=== PATIENT | female | born 1965 | race Caucasian/White ===

== ENCOUNTER 2016-11-25 16:34 | Inpatient (IN) | payer OTHER ==
[~2016-11-25] VITALS: Ht 182.9 cm; Wt 66.2 kg
[~2016-11-25 16:34] MED LIST: ASPIRIN EC81 MG PO
[2016-11-25 17:53] LABS: RED BLOOD COUNT 4.89 M/UL (4.00-5.10); WHITE BLOOD COUNT 13.5 K/UL (4.5-11.0)
[2016-11-25 18:15] LABS: BUN/CREATININE RATIO 17 (0-10)
[2016-11-25] MEDS ORDERED: CELEXA40 MG PO (21:57)
[2016-11-25] MEDS ORDERED: ALPRAZOLAM0.5 MG PO (21:58)
[2016-11-25] MEDS ORDERED: NEURONTIN 300300 MG PO (21:58)
[2016-11-25 22:45] LABS: HEMOGLOBIN 13.3 gm/dl (12.3-15.3); RED BLOOD COUNT 4.62 M/UL (4.00-5.10); WHITE BLOOD COUNT 12.5 K/UL (4.5-11.0)
[2016-11-26 04:09] LABS: RED BLOOD COUNT 4.84 M/UL (4.00-5.10); WHITE BLOOD COUNT 9.7 K/UL (4.5-11.0)
[2016-11-26 04:31] LABS: BUN/CREATININE RATIO 20 (0-10)
[2016-11-27 04:01] LABS: HEMOGLOBIN 13.7 gm/dl (12.3-15.3); RED BLOOD COUNT 4.71 M/UL (4.00-5.10)
[2016-11-27 04:22] LABS: BUN/CREATININE RATIO 23 (0-10)
[2016-11-28 03:54] LABS: HEMOGLOBIN 13.7 gm/dl (12.3-15.3); RED BLOOD COUNT 4.79 M/UL (4.00-5.10)
[2016-11-28 03:55] LABS: WHITE BLOOD COUNT 10.9 K/UL (4.5-11.0)
[2016-11-28 04:27] LABS: BUN/CREATININE RATIO 23 (0-10)
[2016-11-30 03:53] LABS: HEMOGLOBIN 14.2 gm/dl (12.3-15.3); RED BLOOD COUNT 4.98 M/UL (4.00-5.10); WHITE BLOOD COUNT 10.6 K/UL (4.5-11.0)
[2016-11-30 04:16] LABS: BUN/CREATININE RATIO 20 (0-10)
[2016-11-30] MEDS ORDERED: LEVAQUIN500 MG PO (15:07)
[2016-11-30] MEDS ORDERED: MEDROL DOSEPAK 24 MG PO (15:08)
[2016-11-30] MEDS ORDERED: DULERA 200 MCG8.8 GM INH (15:09)
[2016-11-30] MEDS ORDERED: IPRAT-ALBUT 0.5-3 ML INH (15:11)
[2016-11-30] MEDS ORDERED: INCRUSE ELLI62.5 MCG INH (15:12)
[2016-11-30] MEDS ORDERED: ROBITUSSIN100 MG/5 M PO (15:19)
[2016-11-30] MEDS ORDERED: TOPROL XL25 MG PO (15:21)
== END 2016-11-30 16:15 | disposition home or self-care (01) | DRG 189 ==
LOC: ER1 16:34 → PROG CARE 19:15 → ZEROF 19:15 → M/S 21:31 → CCU 11-26 11:02 → PROG CARE 11-26 15:02
PROVIDERS: Emergency Medicine; ADMIT Internal Medicine
DX: J96.21 Acute and chronic respiratory failure with hypoxia (principal); J44.1 Chronic obstructive pulmonary disease with (acute) exacerbation; F10.239 Alcohol dependence with withdrawal, unspecified; Z68.1 Body mass index [BMI] 19.9 or less, adult; F41.9 Anxiety disorder, unspecified; F32.9 Major depressive disorder, single episode, unspecified; J45.909 Unspecified asthma, uncomplicated; E03.9 Hypothyroidism, unspecified; M19.90 Unspecified osteoarthritis, unspecified site; F17.210 Nicotine dependence, cigarettes, uncomplicated; M54.5 Low back pain; R00.2 Palpitations; R63.4 Abnormal weight loss; I45.10 Unspecified right bundle-branch block; Y90.9 Presence of alcohol in blood, level not specified; Z91.14 Patient's other noncompliance with medication regimen; Z82.5 Family history of asthma and other chronic lower respiratory diseases; Z88.5 Allergy status to narcotic agent; Z79.899 Other long term (current) drug therapy; Z99.81 Dependence on supplemental oxygen; Z82.49 Family history of ischemic heart disease and other diseases of the circulatory system
CPT/HCPCS: 36415; 36600; 71010; 71020; 80048; 80053; 82550; 82553; 82803; 83605; 83735; 83880; 84100; 84439; 84443; 84484; 85025; 85027; 85379; 87040; 93005; 94640; 94664; 96374; 99285; J1956; J2060; J2405; J2550; J2920; J2930; J7050

== ENCOUNTER 2020-06-25 13:49 | Inpatient (IN) | payer OTHER ==
[~2020-06-25] VITALS: Ht 182.9 cm; Wt 58.5 kg
[~2020-06-25 13:49] MED LIST changes: +ACETAMINOPHEN325 MG PO; +ALBUTEROL0.63 MG/3 INH; +ALPRAZOLAM0.5 MG PO; +BROVANA15 MCG/2 M NEB; +BUDESONIDE0.25 MG/2 NEB; +CELEXA20 MG PO; +CELEXA40 MG PO; +DILTIAZEM 24HR300 M1 PO; +DULERA 200 MCG8.8 GM INH; +ELIQUIS 5 MG TAB5 MG PO; +FERROUS SULFAT325 M2 PO; +FLECAINIDE ACE100 MG PO; +FOLIC ACID 1 MG1 MG PO; +GABAPENTIN400 MG PO; +HUMIBID LA TAB600 MG PO; +INCRUSE ELLI62.5 MCG INH; +IPRAT-ALBUT 0.5-3 ML INH; +K-TAB ER20 MEQ PO; +LEVALBUTER1.25 MG/3 NEB; +LEVAQUIN500 MG PO; +LIBRIUM 5 MG CAP5 MG PO; +LOPRESSOR 25 MG25 MG PO; +MEDROL DOSEPAK 24 MG PO; +MEDROL4 MG PO; +NEURONTIN600 MG PO; +OMNICEF 300 MG300 MG PO; +ONDANSETRON ODT4 MG PO; +PERCOCET 5-3251 EACH PO; +PERCOCET 5/325 T1 EA PO; +PREDNISONE 10 M10 MG PO; +PREDNISONE20 MG PO; +PROTONIX40 MG PO; +PROVENTIL HFA6.7 GM INH; +ROBITUSSIN100 MG/5 M PO; +SEEBRI NEOHALER (WIT INH; +SPIRIVA HANDIH18 MCG INH; +SYMBICORT 16010.2 GM INH; +TAB-A-VITE1 EACH PO; +TESSALON PERLE100 MG PO; +TOPROL XL25 MG PO; +TRAMADOL HCL50 MG PO; +VENTOLIN HFA 66.7 GM INH; +VIBRAMYCIN100 MG PO; +VITAMIN B-1100 M1 PO; +VITAMIN B-1100 MG PO; +VITAMIN D325 MCG PO; +XANAX0.5 MG PO; +XARELTO 10 MG T10 MG PO; +XARELTO20 MG PO; +ZITHROMAX500 MG PO; +ZOFRAN4 MG PO
[2020-06-25 15:31] LABS: HEMOGLOBIN 13.9 gm/dl (12.3-15.3); RED BLOOD COUNT 4.64 M/UL (4.00-5.10); WHITE BLOOD COUNT 11.8 K/UL (4.5-11.0)
[2020-06-25 19:03] LABS: BUN/CREATININE RATIO 9 (0-10)
[2020-06-25] MEDS ORDERED: ALPRAZOLAM0.5 MG PO (20:20)
[2020-06-26 05:29] LABS: HEMOGLOBIN 10.9 gm/dl (12.3-15.3); RED BLOOD COUNT 3.72 M/UL (4.00-5.10)
[2020-06-26 05:51] LABS: BUN/CREATININE RATIO 12 (0-10)
[2020-06-26 14:04] LABS: HEMOGLOBIN 11.4 gm/dl (12.3-15.3); RED BLOOD COUNT 3.79 M/UL (4.00-5.10); WHITE BLOOD COUNT 7.1 K/UL (4.5-11.0)
[2020-06-26 14:32] LABS: BUN/CREATININE RATIO 13 (0-10)
[2020-06-27 14:51] LABS: RED BLOOD COUNT 4.02 M/UL (4.00-5.10)
[2020-06-27 15:18] LABS: BUN/CREATININE RATIO 14 (0-10)
[2020-06-28 14:12] LABS: HEMOGLOBIN 10.2 gm/dl (12.3-15.3)
[2020-06-28 14:17] LABS: RED BLOOD COUNT 3.42 M/UL (4.00-5.10); WHITE BLOOD COUNT 6.7 K/UL (4.5-11.0)
[2020-06-28 14:36] LABS: BUN/CREATININE RATIO 12 (0-10)
[2020-06-29 09:49] LABS: RED BLOOD COUNT 3.64 M/UL (4.00-5.10); WHITE BLOOD COUNT 7.9 K/UL (4.5-11.0)
[2020-06-29 10:09] LABS: BUN/CREATININE RATIO 9 (0-10)
[2020-06-29 22:27] LABS: ADENOVIRUS F 40/41 Not Detected (Negative); ASTROVIRUS Not Detected (Negative); CAMPYLOBACTER Not Detected (Negative); CRYPTOSPORIDIUM Not Detected (Negative); E.COLI 0157 Not Detected (Negative); ENTAMOEBA HISTOLYTICA Not Detected (Negative); ENTEROAGGREGATIVE E.COLI (EAEC Not Detected (Negative); ENTEROPATHOGENIC E.COLI (EPEC) Not Detected (Negative); ENTEROTOXIGENIC E.COLI (ETEC) Not Detected (Negative); GIARDIA LAMBLIA Not Detected (Negative); NOROVIRUS GI/GII Not Detected (Negative); PLESIOMONAS SHIGELLOIDES Not Detected (Negative); ROTOVIRUS A Not Detected (Negative); SALMONELLA Not Detected (Negative); SAPOVIRUS Not Detected (Negative); SHIG/ENTEROINVAS.ECOLI (EIEC) Not Detected (Negative); SHIGA-LIK TOX.PRO.E.COLI (STEC Not Detected (Negative); VIBRIO Not Detected (Negative); VIBRIO CHOLERAE Not Detected (Negative); YERSINIA ENTEROCOLITICA Not Detected (Negative)
[2020-06-30 05:17] LABS: HEMOGLOBIN 9.7 gm/dl (12.3-15.3); RED BLOOD COUNT 3.22 M/UL (4.00-5.10); WHITE BLOOD COUNT 6.4 K/UL (4.5-11.0)
[2020-06-30 05:35] LABS: BUN/CREATININE RATIO 12 (0-10)
[2020-06-30 11:59] LABS: CLOSTRIDIUM DIFFICILE TOX A/B DETECTED (Negative)
[2020-07-01 04:07] LABS: RED BLOOD COUNT 3.3 M/UL (4.00-5.10); WHITE BLOOD COUNT 6.9 K/UL (4.5-11.0)
[2020-07-01 04:32] LABS: BUN/CREATININE RATIO 13 (0-10)
[2020-07-02 03:01] LABS: HEMOGLOBIN 10.2 gm/dl (12.3-15.3); RED BLOOD COUNT 3.38 M/UL (4.00-5.10); WHITE BLOOD COUNT 7.5 K/UL (4.5-11.0)
[2020-07-02 03:33] LABS: BUN/CREATININE RATIO 15 (0-10)
[2020-07-03 02:33] LABS: HEMOGLOBIN 10.1 gm/dl (12.3-15.3); RED BLOOD COUNT 3.33 M/UL (4.00-5.10)
[2020-07-03 03:02] LABS: BUN/CREATININE RATIO 20 (0-10)
[2020-07-03] MEDS ORDERED: VITAMIN B-1100 M1 PO (11:55)
[2020-07-03] MEDS ORDERED: TAB-A-VITE TA400 MC1 PO (11:55)
[2020-07-03] MEDS ORDERED: NICOTINE PATCH1 EAC2 TOP (11:55)
[2020-07-03] MEDS ORDERED: AUGMENTIN 875-1 EACH PO (11:57)
[2020-07-03] MEDS ORDERED: VANCOCIN HCL125 MG PO (12:03)
== END 2020-07-03 13:53 | disposition home health service (06) | DRG 896 ==
LOC: ER1 13:49 → PROG CARE 19:27 → CDU 19:27 → PROG CARE 06-26 11:00
PROVIDERS: Emergency Medicine; Internal Medicine; ADMIT Internal Medicine
DX: F10.229 Alcohol dependence with intoxication, unspecified (principal); J18.9 Pneumonia, unspecified organism; A04.72 Enterocolitis due to Clostridium difficile, not specified as recurrent; J44.1 Chronic obstructive pulmonary disease with (acute) exacerbation; I48.20 Chronic atrial fibrillation, unspecified; E87.0 Hyperosmolality and hypernatremia; J44.0 Chronic obstructive pulmonary disease with (acute) lower respiratory infection; Z20.822 Contact with and (suspected) exposure to COVID-19; E87.6 Hypokalemia; E83.39 Other disorders of phosphorus metabolism; I10 Essential (primary) hypertension; D69.59 Other secondary thrombocytopenia; E80.6 Other disorders of bilirubin metabolism; D64.9 Anemia, unspecified; R79.89 Other specified abnormal findings of blood chemistry; D72.829 Elevated white blood cell count, unspecified; M25.512 Pain in left shoulder; F17.210 Nicotine dependence, cigarettes, uncomplicated; G62.9 Polyneuropathy, unspecified; Z98.51 Tubal ligation status; Z82.3 Family history of stroke; Z99.81 Dependence on supplemental oxygen; Z80.3 Family history of malignant neoplasm of breast; Z91.81 History of falling; Z23 Encounter for immunization
CPT/HCPCS: 36415; 36600; 70450; 71045; 73030; 76705; 80053; 80202; 82550; 82553; 82607; 82803; 83735; 83874; 83880; 84100; 84132; 84439; 84443; 84484; 85025; 85027; 87324; 87449; 87507; 90471; 90686; 93005; 94640; 94760; 96365; 96366; 96372; 96375; 96376; 97161; 99285; G0008; G0480; J1335; J1650; J1885; J2060; J2185; J2405; J3370; J3411; J3475; J3480; J7030; J7070; U0002

== ENCOUNTER 2020-08-28 21:37 | Inpatient (IN) | payer OTHER ==
[~2020-08-28] VITALS: Ht 182.9 cm; Wt 50.8 kg
[~2020-08-28 21:37] MED LIST changes: +AUGMENTIN 875-1 EACH PO; +NICOTINE PATCH1 EAC2 TOP; +TAB-A-VITE TA400 MC1 PO; +VANCOCIN HCL125 MG PO
[2020-08-28 22:07] LABS: HEMOGLOBIN 10.7 gm/dl (12.3-15.3); RED BLOOD COUNT 3.52 M/UL (4.00-5.10); WHITE BLOOD COUNT 12.9 K/UL (4.5-11.0)
[2020-08-28 22:25] LABS: BUN/CREATININE RATIO 31 (0-10)
[2020-08-29] MEDS ORDERED: DILTIAZEM 24HR240 M1 PO (00:12)
[2020-08-29] MEDS ORDERED: ASPIRIN EC81 MG PO (00:16)
[2020-08-29 03:53] LABS: HEMOGLOBIN 10.6 gm/dl (12.3-15.3); RED BLOOD COUNT 3.46 M/UL (4.00-5.10); WHITE BLOOD COUNT 10.8 K/UL (4.5-11.0)
[2020-08-29 04:18] LABS: BUN/CREATININE RATIO 19 (0-10)
[2020-08-30 06:29] LABS: HEMOGLOBIN 10.9 gm/dl (12.3-15.3); RED BLOOD COUNT 3.64 M/UL (4.00-5.10)
[2020-08-30 06:35] LABS: WHITE BLOOD COUNT 7.5 K/UL (4.5-11.0)
[2020-08-30 06:52] LABS: BUN/CREATININE RATIO 18 (0-10)
[2020-08-30] MEDS ORDERED: FERROUS SULFAT325 M2 PO (13:44)
[2020-08-30] MEDS ORDERED: VITAMIN B-1100 M1 PO (13:44)
[2020-08-30] MEDS ORDERED: FOLIC ACID 1 MG1 MG PO (13:44)
[2020-08-30] MEDS ORDERED: KEPPRA500 MG PO (13:44)
[2020-08-30] MEDS ORDERED: OXYCODONE HCL5 MG PO (13:44)
== END 2020-08-30 15:03 | disposition home or self-care (01) | DRG 897 ==
LOC: ER1 21:37 → CDU 23:00 → MED SURG 4 23:00
PROVIDERS: Internal Medicine; ADMIT Internal Medicine
DX: F10.139 Alcohol abuse with withdrawal, unspecified (principal); R64 Cachexia; Z68.1 Body mass index [BMI] 19.9 or less, adult; G40.909 Epilepsy, unspecified, not intractable, without status epilepticus; J44.9 Chronic obstructive pulmonary disease, unspecified; M19.90 Unspecified osteoarthritis, unspecified site; D64.9 Anemia, unspecified; E88.09 Other disorders of plasma-protein metabolism, not elsewhere classified; I48.0 Paroxysmal atrial fibrillation; F17.200 Nicotine dependence, unspecified, uncomplicated; F41.9 Anxiety disorder, unspecified; Z98.51 Tubal ligation status
CPT/HCPCS: 36415; 70450; 70551; 71045; 72131; 80048; 80053; 80307; 81001; 83735; 85025; 85610; 85730; 93005; 94640; 94664; 94760; 96365; 96366; 96375; 99285; G0378; G0480; J1170; J1953; J2060; J2405; J7030

== ENCOUNTER 2020-09-07 23:43 | Emergency (ER) | payer OTHER ==
[~2020-09-07 23:43] MED LIST changes: +DILTIAZEM 24HR240 M1 PO; +KEPPRA500 MG PO; +OXYCODONE HCL5 MG PO
[2020-09-08] MEDS ORDERED: PERCOCET 5-3251 EACH PO (03:13)
[2020-09-08] MEDS ORDERED: IBUPROFEN600 MG PO (03:13)
[2020-09-08] MEDS ORDERED: COLACE100 MG PO (03:13)
== END 2020-09-08 04:00 | disposition home or self-care (01) ==
LOC: ER1 23:43
DX: S32.10XA Unspecified fracture of sacrum, initial encounter for closed fracture (principal); J44.9 Chronic obstructive pulmonary disease, unspecified; F17.210 Nicotine dependence, cigarettes, uncomplicated; W19.XXXA Unspecified fall, initial encounter
CPT/HCPCS: 72131; 96372; 99284; J1100; J1885

== ENCOUNTER 2020-10-14 20:47 | Inpatient (IN) | payer OTHER ==
[~2020-10-14] VITALS: Ht 183 cm; Wt 56.7 kg
[~2020-10-14 20:47] MED LIST changes: +COLACE100 MG PO; +IBUPROFEN600 MG PO
[2020-10-14 21:59] LABS: HEMOGLOBIN 12.4 gm/dl (12.3-15.3); RED BLOOD COUNT 4.22 M/UL (4.00-5.10); WHITE BLOOD COUNT 15.5 K/UL (4.5-11.0)
[2020-10-14 22:16] LABS: BUN/CREATININE RATIO 12 (0-10)
[2020-10-14 23:55] LABS: BORDETELLA PARAPERTUSSIS Not Detected (Not Detectd); BORDETELLA PERTUSSIS Not Detected (Not Detectd); CHLAMYDIA PNEUMONIAE Not Detected (Not Detectd); CORONAVIRUS HKU1 Not Detected (Not Detectd); CORONAVIRUS NL63 Not Detected (Not Detectd); CORONAVIRUS OC43 Not Detected (Not Detectd); CORONOAVIRUS 229E Not Detected (Not Detectd); HUMAN METAPNEUMOVIRUS Not Detected (Not Detectd); HUMAN RHINOVIRUS/ENTEROVIRUS Not Detected (Not Detectd); INFLUENZA A Not Detected (Not Detectd); INFLUENZA B Not Detected (Not Detectd); MYCOPLASMA PNEUMONIAE Not Detected (Not Detectd); PARAINFLUENZA VIRUS 1 Not Detected (Not Detectd); PARAINFLUENZA VIRUS 2 Not Detected (Not Detectd); PARAINFLUENZA VIRUS 3 Not Detected (Not Detectd); PARAINFLUENZA VIRUS 4 Not Detected (Not Detectd); RESPIRATORY SYNCYTIAL VIRUS Not Detected (Not Detectd)
[2020-10-15 01:58] LABS: HEMOGLOBIN 12.2 gm/dl (12.3-15.3); RED BLOOD COUNT 4.22 M/UL (4.00-5.10); WHITE BLOOD COUNT 15.6 K/UL (4.5-11.0)
[2020-10-15 02:05] LABS: SARS-CoV-2 NOT DETECTED (Not Detectd)
[2020-10-15 02:21] LABS: BUN/CREATININE RATIO 9 (0-10)
[2020-10-15] MEDS ORDERED: CELEXA 20MG TAB20 MG PO (09:13)
[2020-10-15] MEDS ORDERED: ALPRAZOLAM0.5 MG PO (09:13)
[2020-10-15] MEDS ORDERED: GABAPENTIN800 MG PO (09:14)
[2020-10-15] MEDS ORDERED: PHENERGAN 25 MG25 M1 PO (09:15)
[2020-10-15] MEDS ORDERED: KEPPRA 500 MG500 MG PO (09:16)
[2020-10-15] MEDS ORDERED: DILTIAZEM 24HR240 M1 PO (09:21)
[2020-10-16 02:31] LABS: HEMOGLOBIN 10.5 gm/dl (12.3-15.3); RED BLOOD COUNT 3.69 M/UL (4.00-5.10); WHITE BLOOD COUNT 9.6 K/UL (4.5-11.0)
[2020-10-16 03:02] LABS: BUN/CREATININE RATIO 24 (0-10)
[2020-10-17 03:08] LABS: BUN/CREATININE RATIO 24 (0-10)
[2020-10-18 03:15] LABS: BUN/CREATININE RATIO 37 (0-10)
[2020-10-21 04:30] LABS: HEMOGLOBIN 10.6 gm/dl (12.3-15.3); RED BLOOD COUNT 3.75 M/UL (4.00-5.10); WHITE BLOOD COUNT 11.1 K/UL (4.5-11.0)
[2020-10-21 04:52] LABS: BUN/CREATININE RATIO 37 (0-10)
[2020-10-23 03:16] LABS: HEMOGLOBIN 11.3 gm/dl (12.3-15.3); WHITE BLOOD COUNT 8.9 K/UL (4.5-11.0)
[2020-10-23 03:32] LABS: BUN/CREATININE RATIO 34 (0-10)
[2020-10-23] MEDS ORDERED: DIGOXIN250 MCG PO (08:59)
[2020-10-23] MEDS ORDERED: LOPRESSOR 25 MG25 MG PO (08:59)
[2020-10-23] MEDS ORDERED: DILTIAZEM 24HR180 M1 PO (08:59)
[2020-10-23] MEDS ORDERED: ASPIRIN81 MG PO (08:59)
--- NOTE | 2020-10-23 17:32 | NUR ---
REPORT CALLED TO [facility]. [phone]
--- NOTE | 2020-10-23 17:36 | NUR ---
REPORT TO FE
== END 2020-10-23 17:07 | disposition home or self-care (01) | DRG 308 ==
LOC: ER1 20:47 → CDU 22:54 → PROG CARE 22:54
PROVIDERS: Emergency Medicine; Internal Medicine; ADMIT Internal Medicine Infectious Disease
DX: I48.0 Paroxysmal atrial fibrillation (principal); J96.21 Acute and chronic respiratory failure with hypoxia; R57.0 Cardiogenic shock; J44.1 Chronic obstructive pulmonary disease with (acute) exacerbation; F10.239 Alcohol dependence with withdrawal, unspecified; E44.0 Moderate protein-calorie malnutrition; Z68.1 Body mass index [BMI] 19.9 or less, adult; F10.229 Alcohol dependence with intoxication, unspecified; M19.90 Unspecified osteoarthritis, unspecified site; K57.90 Diverticulosis of intestine, part unspecified, without perforation or abscess without bleeding; R07.9 Chest pain, unspecified; G62.9 Polyneuropathy, unspecified; Z20.822 Contact with and (suspected) exposure to COVID-19; Y90.8 Blood alcohol level of 240 mg/100 ml or more; Z79.01 Long term (current) use of anticoagulants; Z72.0 Tobacco use; Z98.51 Tubal ligation status; Z80.3 Family history of malignant neoplasm of breast; Z82.3 Family history of stroke; Z91.81 History of falling; G40.909 Epilepsy, unspecified, not intractable, without status epilepticus; I48.19 Other persistent atrial fibrillation
CPT/HCPCS: 0240U; 36415; 71045; 71275; 80048; 80053; 82550; 82553; 82607; 83605; 83735; 83874; 84100; 84439; 84443; 84484; 85025; 85610; 85730; 87040; 87633; 93005; 94640; 94664; 94760; 96374; 96375; 96376; 97110; 97116-GP-CQ; 97161; 97166; 97530-GP-CQ; 99285; G0480; J1160; J1650; J2060; J2270; J2920; J2930; J3411; J3475; J7030; Q9967

== ENCOUNTER 2020-11-10 20:20 | Inpatient (IN) | payer OTHER ==
[~2020-11-10] VITALS: Ht 167.6 cm; Wt 53.1 kg
[~2020-11-10 20:20] MED LIST changes: +ASPIRIN81 MG PO; +CELEXA 20MG TAB20 MG PO; +DIGOXIN250 MCG PO; +DILTIAZEM 24HR180 M1 PO; +GABAPENTIN800 MG PO; +KEPPRA 500 MG500 MG PO; +PHENERGAN 25 MG25 M1 PO
[2020-11-10 20:48] LABS: HEMOGLOBIN 12.8 gm/dl (12.3-15.3); RED BLOOD COUNT 4.66 M/UL (4.00-5.10); WHITE BLOOD COUNT 10.3 K/UL (4.5-11.0)
[2020-11-10 21:18] LABS: BUN/CREATININE RATIO 6 (0-10)
[2020-11-11 06:05] LABS: HEMOGLOBIN 11.9 gm/dl (12.3-15.3); WHITE BLOOD COUNT 9.2 K/UL (4.5-11.0)
[2020-11-11 06:06] LABS: RED BLOOD COUNT 4.19 M/UL (4.00-5.10)
[2020-11-11 06:34] LABS: BUN/CREATININE RATIO 8 (0-10)
[2020-11-11] MEDS ORDERED: DIGOXIN125 MCG PO (11:18)
[2020-11-11] MEDS ORDERED: KEPPRA500 MG PO (11:48)
[2020-11-11] MEDS ORDERED: DOCUSATE SODIU100 MG PO (11:49)
[2020-11-11] MEDS ORDERED: PHENERGAN 25 MG25 M1 PO (11:49)
[2020-11-11] MEDS ORDERED: FERROUS SULFAT325 MG PO (11:50)
[2020-11-11] MEDS ORDERED: DAILY-VITE1 EACH PO (11:50)
[2020-11-11] MEDS ORDERED: PROAIR HFA8.5 GM INH (11:51)
[2020-11-12 04:32] LABS: HEMOGLOBIN 11.1 gm/dl (12.3-15.3); RED BLOOD COUNT 3.89 M/UL (4.00-5.10); WHITE BLOOD COUNT 8.8 K/UL (4.5-11.0)
[2020-11-12 05:00] LABS: BUN/CREATININE RATIO 10 (0-10)
[2020-11-13 03:11] LABS: HEMOGLOBIN 10.3 gm/dl (12.3-15.3); RED BLOOD COUNT 3.68 M/UL (4.00-5.10); WHITE BLOOD COUNT 7.9 K/UL (4.5-11.0)
[2020-11-13 03:42] LABS: BUN/CREATININE RATIO 21 (0-10)
[2020-11-14 02:45] LABS: HEMOGLOBIN 10.6 gm/dl (12.3-15.3); RED BLOOD COUNT 3.71 M/UL (4.00-5.10)
[2020-11-14 02:48] LABS: WHITE BLOOD COUNT 11.2 K/UL (4.5-11.0)
[2020-11-14 03:05] LABS: BUN/CREATININE RATIO 20 (0-10)
[2020-11-15 03:03] LABS: HEMOGLOBIN 10.7 gm/dl (12.3-15.3); RED BLOOD COUNT 3.74 M/UL (4.00-5.10)
[2020-11-15 03:23] LABS: BUN/CREATININE RATIO 31 (0-10)
[2020-11-16 02:42] LABS: HEMOGLOBIN 10.8 gm/dl (12.3-15.3); RED BLOOD COUNT 3.76 M/UL (4.00-5.10); WHITE BLOOD COUNT 12.2 K/UL (4.5-11.0)
[2020-11-16 03:06] LABS: BUN/CREATININE RATIO 31 (0-10)
[2020-11-17 04:49] LABS: HEMOGLOBIN 11.6 gm/dl (12.3-15.3); RED BLOOD COUNT 4.04 M/UL (4.00-5.10); WHITE BLOOD COUNT 12.5 K/UL (4.5-11.0)
[2020-11-17 05:19] LABS: BUN/CREATININE RATIO 40 (0-10)
[2020-11-18 03:37] LABS: HEMOGLOBIN 10.7 gm/dl (12.3-15.3); RED BLOOD COUNT 3.8 M/UL (4.00-5.10); WHITE BLOOD COUNT 11.3 K/UL (4.5-11.0)
[2020-11-18 03:58] LABS: BUN/CREATININE RATIO 40 (0-10)
[2020-11-18] MEDS ORDERED: DILTIAZEM 24HR240 M1 PO (14:27)
[2020-11-18] MEDS ORDERED: PROAIR HFA8.5 GM INH (14:27)
[2020-11-18] MEDS ORDERED: LOPRESSOR 25 MG25 MG PO (14:27)
[2020-11-18] MEDS ORDERED: PREDNISONE 20 M20 MG PO (14:27)
[2020-11-18] MEDS ORDERED: DIGOXIN250 MCG PO (14:27)
[2020-11-18] MEDS ORDERED: SYMBICORT 80-41 INHA INH (14:27)
[2020-12-17] MEDS ORDERED: DOXYCYCLINE HY100 MG PO (09:01)
[2020-12-17] MEDS ORDERED: FOLIC ACID1 MG PO (09:01)
[2020-12-17] MEDS ORDERED: THIAMINE HCL100 MG PO (09:01)
[2020-12-17] MEDS ORDERED: IPRATROPIU0.2 MG/1 M INH (09:01)
[2020-12-17] MEDS ORDERED: LEVALBUTER1.25 MG/3 NEB (09:01)
[2020-12-17] MEDS ORDERED: MUPIROCIN22 GM TOP (09:01)
[2020-12-17] MEDS ORDERED: METOPROLOL SUC200 MG PO (09:01)
== END 2020-11-18 16:35 | disposition home or self-care (01) | DRG 308 ==
LOC: ER1 20:20 → CDU 23:32 → PROG CARE 23:32
PROVIDERS: Emergency Medicine; Internal Medicine; ADMIT Internal Medicine
DX: I48.11 Longstanding persistent atrial fibrillation (principal); J69.0 Pneumonitis due to inhalation of food and vomit; J44.1 Chronic obstructive pulmonary disease with (acute) exacerbation; J44.0 Chronic obstructive pulmonary disease with (acute) lower respiratory infection; F10.139 Alcohol abuse with withdrawal, unspecified; F10.129 Alcohol abuse with intoxication, unspecified; Z20.822 Contact with and (suspected) exposure to COVID-19; G62.9 Polyneuropathy, unspecified; R53.81 Other malaise; F17.210 Nicotine dependence, cigarettes, uncomplicated; M19.90 Unspecified osteoarthritis, unspecified site; I08.1 Rheumatic disorders of both mitral and tricuspid valves; F32.9 Major depressive disorder, single episode, unspecified; E83.39 Other disorders of phosphorus metabolism; F41.9 Anxiety disorder, unspecified; Z79.01 Long term (current) use of anticoagulants; Z99.81 Dependence on supplemental oxygen; Z98.51 Tubal ligation status; Z87.19 Personal history of other diseases of the digestive system; Z80.3 Family history of malignant neoplasm of breast; Z82.3 Family history of stroke; Z79.82 Long term (current) use of aspirin; Z65.8 Other specified problems related to psychosocial circumstances; Y90.8 Blood alcohol level of 240 mg/100 ml or more
CPT/HCPCS: 36415; 71045; 71046; 80048; 80053; 80162; 82550; 82553; 83735; 83874; 83880; 84100; 84439; 84443; 84484; 85025; 85027; 86140; 93005; 94640; 94664; 94760; 96365; 96366; 96368; 96375; 97116-GP-CQ; 97161; 97166; 99285; C1751; G0480; J1120; J1160; J1650; J2060; J2405; J2920; J3411; J3475; J3480; J7030; U0002

== ENCOUNTER 2020-12-11 22:24 | Inpatient (IN) | payer OTHER ==
[~2020-12-11] VITALS: Ht 175.3 cm; Wt 56.2 kg
[~2020-12-11 22:24] MED LIST changes: +DAILY-VITE1 EACH PO; +DIGOXIN125 MCG PO; +DOCUSATE SODIU100 MG PO; +FERROUS SULFAT325 MG PO; +PREDNISONE 20 M20 MG PO; +PROAIR HFA8.5 GM INH; +SYMBICORT 80-41 INHA INH
[2020-12-11 22:59] LABS: HEMOGLOBIN 12.5 gm/dl (12.3-15.3); RED BLOOD COUNT 4.29 M/UL (4.00-5.10); WHITE BLOOD COUNT 10.3 K/UL (4.5-11.0)
[2020-12-11 23:33] LABS: BUN/CREATININE RATIO 7 (0-10)
[2020-12-12] MEDS ORDERED: SYMBICORT 80-10.2 GM INH (02:35)
[2020-12-12] MEDS ORDERED: ALPRAZOLAM0.5 MG PO (02:35)
[2020-12-12 08:26] LABS: BUN/CREATININE RATIO 9 (0-10)
[2020-12-13 04:44] LABS: BUN/CREATININE RATIO 10 (0-10)
[2020-12-14 04:15] LABS: BUN/CREATININE RATIO 15 (0-10)
[2020-12-15 03:56] LABS: HEMOGLOBIN 10.9 gm/dl (12.3-15.3); RED BLOOD COUNT 3.75 M/UL (4.00-5.10); WHITE BLOOD COUNT 10.3 K/UL (4.5-11.0)
[2020-12-15 04:24] LABS: BUN/CREATININE RATIO 19 (0-10)
[2020-12-16 04:58] LABS: HEMOGLOBIN 10.1 gm/dl (12.3-15.3); RED BLOOD COUNT 3.51 M/UL (4.00-5.10); WHITE BLOOD COUNT 8.4 K/UL (4.5-11.0)
[2020-12-16 05:17] LABS: BUN/CREATININE RATIO 25 (0-10)
[2020-12-17 04:22] LABS: RED BLOOD COUNT 3.82 M/UL (4.00-5.10); WHITE BLOOD COUNT 8.7 K/UL (4.5-11.0)
[2020-12-17 04:41] LABS: BUN/CREATININE RATIO 27 (0-10)
[2020-12-17] MEDS ORDERED: FOLIC ACID1 MG PO (09:01)
[2020-12-17] MEDS ORDERED: IPRATROPIU0.2 MG/1 M INH (09:01)
[2020-12-17] MEDS ORDERED: DOXYCYCLINE HY100 MG PO (09:01)
[2020-12-17] MEDS ORDERED: LEVALBUTER1.25 MG/3 NEB (09:01)
[2020-12-17] MEDS ORDERED: MUPIROCIN22 GM TOP (09:01)
[2020-12-17] MEDS ORDERED: METOPROLOL SUC200 MG PO (09:01)
[2020-12-17] MEDS ORDERED: THIAMINE HCL100 MG PO (09:01)
== END 2020-12-17 17:00 | disposition home health service (06) | DRG 308 ==
LOC: ER1 22:24 → CCU 12-12 00:17 → CDU 12-12 00:17 → PROG CARE 12-12 00:17 → CCU 12-12 02:42 → PROG CARE 12-14 18:55 → CCU 12-14 20:11 → PROG CARE 12-14 23:25
PROVIDERS: Internal Medicine; Physician Assistant; ADMIT Internal Medicine
DX: I48.19 Other persistent atrial fibrillation (principal); E43 Unspecified severe protein-calorie malnutrition; J44.1 Chronic obstructive pulmonary disease with (acute) exacerbation; J96.11 Chronic respiratory failure with hypoxia; F10.131 Alcohol abuse with withdrawal delirium; Z68.1 Body mass index [BMI] 19.9 or less, adult; F32.9 Major depressive disorder, single episode, unspecified; F10.10 Alcohol abuse, uncomplicated; F41.9 Anxiety disorder, unspecified; Z20.822 Contact with and (suspected) exposure to COVID-19; F10.129 Alcohol abuse with intoxication, unspecified; M19.90 Unspecified osteoarthritis, unspecified site; E87.6 Hypokalemia; R74.01 Elevation of levels of liver transaminase levels; G89.29 Other chronic pain; M54.9 Dorsalgia, unspecified; E83.39 Other disorders of phosphorus metabolism; E83.51 Hypocalcemia; Z91.14 Patient's other noncompliance with medication regimen; Z79.01 Long term (current) use of anticoagulants; Z98.51 Tubal ligation status; Z82.3 Family history of stroke; Z80.3 Family history of malignant neoplasm of breast
CPT/HCPCS: ECHO; 36415; 71045; 71046; 80053; 80162; 80202; 80307; 81001; 82550; 82553; 82607; 82746; 83036; 83735; 83874; 83880; 84100; 84132; 84484; 85025; 85027; 86140; 87040; 87070; 87086; 87205; 93005; 93306; 94640; 94664; 94760; 96374; 96375; 99285; A6212; G0480; J1160; J1650; J1940; J2060; J2405; J2920; J2930; J3370; J3411; J3475; J3480; J7030; J7070; U0002

== ENCOUNTER 2021-03-01 19:59 | Inpatient (IN) | payer OTHER ==
[~2021-03-01] VITALS: Ht 172.7 cm; Wt 57.2 kg
[~2021-03-01 19:59] MED LIST changes: +DOXYCYCLINE HY100 MG PO; +FOLIC ACID1 MG PO; +IPRATROPIU0.2 MG/1 M INH; +METOPROLOL SUC200 MG PO; +MUPIROCIN22 GM TOP; +SYMBICORT 80-10.2 GM INH; +THIAMINE HCL100 MG PO
[2021-03-01 20:40] LABS: HEMOGLOBIN 13.7 gm/dl (12.3-15.3); RED BLOOD COUNT 4.49 M/UL (4.00-5.10); WHITE BLOOD COUNT 10.6 K/UL (4.5-11.0)
[2021-03-01 21:05] LABS: BUN/CREATININE RATIO 6 (0-10)
[2021-03-02 07:48] LABS: HEMOGLOBIN 11.1 gm/dl (12.3-15.3); RED BLOOD COUNT 3.78 M/UL (4.00-5.10); WHITE BLOOD COUNT 2.4 K/UL (4.5-11.0)
[2021-03-02 09:24] LABS: BUN/CREATININE RATIO 10 (0-10)
[2021-03-03 07:31] LABS: BUN/CREATININE RATIO 23 (0-10)
[2021-03-03 11:07] LABS: BUN/CREATININE RATIO 21 (0-10)
[2021-03-03] MEDS ORDERED: PROAIR HFA8.5 GM INH (11:43)
[2021-03-03] MEDS ORDERED: AMOX TR-K CLV1 EAC4 PO (11:53)
[2021-03-03] MEDS ORDERED: TAB-A-VITE TA400 MC1 PO (11:53)
[2021-03-03] MEDS ORDERED: TOPROL XL200 MG PO (11:55)
[2021-03-03] MEDS ORDERED: KEPPRA500 MG PO (12:12)
== END 2021-03-03 14:17 | disposition home health service (06) | DRG 896 ==
LOC: ER1 19:59 → CDU 23:13 → MED SURG 4 23:13
PROVIDERS: Family Medicine; Internal Medicine; ADMIT Internal Medicine
DX: F10.129 Alcohol abuse with intoxication, unspecified (principal); J96.01 Acute respiratory failure with hypoxia; Z20.822 Contact with and (suspected) exposure to COVID-19; J44.1 Chronic obstructive pulmonary disease with (acute) exacerbation; E87.2 Acidosis; I48.0 Paroxysmal atrial fibrillation; F41.9 Anxiety disorder, unspecified; G62.9 Polyneuropathy, unspecified; F17.210 Nicotine dependence, cigarettes, uncomplicated; M19.90 Unspecified osteoarthritis, unspecified site; R53.81 Other malaise; G89.29 Other chronic pain; E87.6 Hypokalemia; E86.0 Dehydration; Z79.01 Long term (current) use of anticoagulants; Z99.81 Dependence on supplemental oxygen; Z98.51 Tubal ligation status; Z82.3 Family history of stroke; Z80.3 Family history of malignant neoplasm of breast; Z91.14 Patient's other noncompliance with medication regimen
CPT/HCPCS: 36415; 71045; 80053; 82550; 82553; 83605; 83735; 84100; 84484; 85025; 87040; 93005; 94640; 94664; 94760; 96374; 96375; 96376; 99285; G0378; G0480; J0456; J0696; J1160; J2920; J2930; J3411; J3480; J7030; U0002

== ENCOUNTER 2021-03-12 19:23 | Inpatient (IN) | payer OTHER ==
[~2021-03-12] VITALS: Ht 182.9 cm; Wt 58.2 kg
[~2021-03-12 19:23] MED LIST changes: +AMOX TR-K CLV1 EAC4 PO; +TOPROL XL200 MG PO
[2021-03-12 20:01] LABS: HEMOGLOBIN 12.9 gm/dl (12.3-15.3); RED BLOOD COUNT 4.31 M/UL (4.00-5.10); WHITE BLOOD COUNT 11.5 K/UL (4.5-11.0)
[2021-03-12 20:43] LABS: BUN/CREATININE RATIO 6 (0-10)
[2021-03-14 02:52] LABS: WHITE BLOOD COUNT 9.1 K/UL (4.5-11.0)
[2021-03-14 03:26] LABS: BUN/CREATININE RATIO 7 (0-10)
[2021-03-14 03:28] LABS: RED BLOOD COUNT 3.73 M/UL (4.00-5.10)
[2021-03-15 04:15] LABS: HEMOGLOBIN 11.1 gm/dl (12.3-15.3); RED BLOOD COUNT 3.77 M/UL (4.00-5.10); WHITE BLOOD COUNT 9.3 K/UL (4.5-11.0)
[2021-03-15 04:50] LABS: BUN/CREATININE RATIO 9 (0-10)
[2021-03-16 03:23] LABS: HEMOGLOBIN 11.6 gm/dl (12.3-15.3); RED BLOOD COUNT 3.88 M/UL (4.00-5.10); WHITE BLOOD COUNT 11.1 K/UL (4.5-11.0)
[2021-03-16 03:56] LABS: BUN/CREATININE RATIO 13 (0-10)
[2021-03-16] MEDS ORDERED: IPRATROPIU0.2 MG/1 M NEB (18:18)
[2021-03-16] MEDS ORDERED: GABAPENTIN300 MG PO (18:18)
[2021-03-16] MEDS ORDERED: XOPENEX HFA15 GM INH (18:18)
[2021-03-16] MEDS ORDERED: ASPIRIN EC81 MG PO (18:18)
[2021-03-16] MEDS ORDERED: CARVEDILOL3.125 MG PO (18:18)
[2021-03-16] MEDS ORDERED: NICOTINE PATCH1 EAC2 TD (18:18)
[2021-03-16] MEDS ORDERED: LEVALBUTER1.25 MG/3 NEB (18:18)
[2021-03-16] MEDS ORDERED: VITAMIN B-1100 M1 PO (18:18)
[2021-03-16] MEDS ORDERED: PROTONIX 40 MG40 M1 PO (18:18)
[2021-03-16] MEDS ORDERED: DILTIAZEM 24HR300 M1 PO (18:18)
[2021-03-16] MEDS ORDERED: OMNICEF 300 MG300 MG PO (18:18)
== END 2021-03-16 19:10 | disposition home or self-care (01) | DRG 308 ==
LOC: ER1 19:23 → CDU 03-13 09:05 → PROG CARE 03-13 09:35
PROVIDERS: Nurse Practitioner; Physician Assistant; ADMIT Internal Medicine
DX: I48.21 Permanent atrial fibrillation (principal); J18.9 Pneumonia, unspecified organism; Z20.822 Contact with and (suspected) exposure to COVID-19; J96.11 Chronic respiratory failure with hypoxia; J44.0 Chronic obstructive pulmonary disease with (acute) lower respiratory infection; J44.1 Chronic obstructive pulmonary disease with (acute) exacerbation; E87.6 Hypokalemia; F41.9 Anxiety disorder, unspecified; M19.90 Unspecified osteoarthritis, unspecified site; F10.129 Alcohol abuse with intoxication, unspecified; G40.909 Epilepsy, unspecified, not intractable, without status epilepticus; G62.9 Polyneuropathy, unspecified; F17.210 Nicotine dependence, cigarettes, uncomplicated; Z79.01 Long term (current) use of anticoagulants; Z91.81 History of falling; Z98.51 Tubal ligation status; Z76.5 Malingerer [conscious simulation]; Z91.14 Patient's other noncompliance with medication regimen
CPT/HCPCS: 36415; 71045; 71275; 80053; 80162; 80202; 80307; 81001; 82550; 82553; 83605; 83735; 83874; 83880; 84439; 84443; 84484; 85025; 87040; 93005; 94640; 94664; 94760; 96374; 96375; 96376; 99285; G0480; J0696; J1940; J2060; J2405; J2543; J3370; J3411; J3475; J7030; J7070; Q9967; U0002

== ENCOUNTER 2021-05-22 11:52 | Inpatient (IN) | payer OTHER ==
[~2021-05-22] VITALS: Ht 182.9 cm; Wt 57.6 kg
[~2021-05-22 11:52] MED LIST changes: +CARVEDILOL3.125 MG PO; +GABAPENTIN300 MG PO; +IPRATROPIU0.2 MG/1 M NEB; +NICOTINE PATCH1 EAC2 TD; +PROTONIX 40 MG40 M1 PO; +XOPENEX HFA15 GM INH
[2021-05-22 12:48] LABS: HEMOGLOBIN 12.3 gm/dl (12.3-15.3); RED BLOOD COUNT 4.64 M/UL (4.00-5.10); WHITE BLOOD COUNT 9.7 K/UL (4.5-11.0)
[2021-05-22 13:12] LABS: BUN/CREATININE RATIO 18 (0-10)
[2021-05-22] MEDS ORDERED: PREDNISONE 20 M20 MG PO (18:30)
[2021-05-22] MEDS ORDERED: DOXYCYCLINE HY100 M2 PO (18:30)
[2021-05-23 05:58] LABS: HEMOGLOBIN 10.9 gm/dl (12.3-15.3); RED BLOOD COUNT 4.22 M/UL (4.00-5.10)
[2021-05-23 06:05] LABS: WHITE BLOOD COUNT 5.5 K/UL (4.5-11.0)
[2021-05-23 06:23] LABS: BUN/CREATININE RATIO 20 (0-10)
--- NOTE | 2021-05-23 15:00 | NUR ---
PT SIGNED AMA, DR. WALKER NOTIFIED, IVS TAKEN OUT, PT. LEFT WITH FAMILY AT APPROX 1300
[2021-05-24] MEDS ORDERED: METOPROLOL SUC200 MG PO (11:59)
== END 2021-05-23 13:30 | disposition left against medical advice (07) | DRG 871 ==
LOC: ER1 11:52 → CDU 19:29 → M/S 23:38
PROVIDERS: Family Medicine; Physician Assistant; ADMIT Internal Medicine
DX: A41.9 Sepsis, unspecified organism (principal); J96.21 Acute and chronic respiratory failure with hypoxia; J44.1 Chronic obstructive pulmonary disease with (acute) exacerbation; E87.2 Acidosis; Z20.822 Contact with and (suspected) exposure to COVID-19; E44.1 Mild protein-calorie malnutrition; Z68.1 Body mass index [BMI] 19.9 or less, adult; I48.20 Chronic atrial fibrillation, unspecified; R65.20 Severe sepsis without septic shock; F10.129 Alcohol abuse with intoxication, unspecified; F17.210 Nicotine dependence, cigarettes, uncomplicated; Z79.01 Long term (current) use of anticoagulants; Z99.81 Dependence on supplemental oxygen; G62.9 Polyneuropathy, unspecified; Z98.51 Tubal ligation status
CPT/HCPCS: 36415; 36600; 71045; 80053; 80307; 81001; 82550; 82553; 82803; 83605; 83735; 83874; 83880; 84439; 84443; 84484; 85025; 87040; 87086; 93005; 94640; 94760; 96374; 96375; 99285; G0480; J0696; J1956; J2060; J2920; J2930; J3411; J3475; U0002

== ENCOUNTER 2021-05-23 23:13 | Inpatient (IN) | payer OTHER ==
[~2021-05-23] VITALS: Ht 182.9 cm; Wt 56.7 kg
[~2021-05-23 23:13] MED LIST changes: +DOXYCYCLINE HY100 M2 PO
[2021-05-24 00:06] LABS: HEMOGLOBIN 12.6 gm/dl (12.3-15.3)
[2021-05-24 00:09] LABS: RED BLOOD COUNT 4.75 M/UL (4.00-5.10); WHITE BLOOD COUNT 13.8 K/UL (4.5-11.0)
[2021-05-24 01:54] LABS: BUN/CREATININE RATIO 16 (0-10)
[2021-05-24 04:24] LABS: BUN/CREATININE RATIO 17 (0-10)
[2021-05-24 04:32] LABS: RED BLOOD COUNT 3.89 M/UL (4.00-5.10); WHITE BLOOD COUNT 9.9 K/UL (4.5-11.0)
[2021-05-24] MEDS ORDERED: METOPROLOL SUC200 MG PO (11:59)
[2021-05-24 15:09] LABS: BUN/CREATININE RATIO 20 (0-10)
[2021-05-25 14:35] LABS: BUN/CREATININE RATIO 22 (0-10)
[2021-05-26 04:31] LABS: HEMOGLOBIN 10.8 gm/dl (12.3-15.3); RED BLOOD COUNT 4.23 M/UL (4.00-5.10); WHITE BLOOD COUNT 8.6 K/UL (4.5-11.0)
[2021-05-26 04:56] LABS: BUN/CREATININE RATIO 22 (0-10)
[2021-05-26 14:33] LABS: BUN/CREATININE RATIO 20 (0-10)
[2021-05-27 03:05] LABS: HEMOGLOBIN 10.1 gm/dl (12.3-15.3); RED BLOOD COUNT 4.09 M/UL (4.00-5.10); WHITE BLOOD COUNT 9.2 K/UL (4.5-11.0)
[2021-05-27 03:28] LABS: BUN/CREATININE RATIO 33 (0-10)
[2021-05-28 04:30] LABS: HEMOGLOBIN 10.2 gm/dl (12.3-15.3)
[2021-05-28 04:41] LABS: WHITE BLOOD COUNT 11.6 K/UL (4.5-11.0)
[2021-05-28 04:49] LABS: BUN/CREATININE RATIO 32 (0-10)
[2021-05-28] MEDS ORDERED: PROVENTIL HFA6.7 GM INH (13:00)
[2021-05-28] MEDS ORDERED: SYMBICORT 16010.2 GM INH (13:00)
[2021-05-28] MEDS ORDERED: PREDNISONE 20 M20 MG PO (13:00)
[2021-05-28] MEDS ORDERED: SPIRIVA RESPIMAT4 GM INH (13:00)
== END 2021-05-28 14:05 | disposition home or self-care (01) | DRG 189 ==
LOC: ER1 23:13 → CDU 05-24 01:29 → PROG CARE 05-24 01:29
PROVIDERS: Emergency Medicine; Internal Medicine; Internal Medicine Infectious Disease; ADMIT Internal Medicine
DX: J96.21 Acute and chronic respiratory failure with hypoxia (principal); J18.9 Pneumonia, unspecified organism; J44.1 Chronic obstructive pulmonary disease with (acute) exacerbation; Z20.822 Contact with and (suspected) exposure to COVID-19; E87.2 Acidosis; J44.0 Chronic obstructive pulmonary disease with (acute) lower respiratory infection; I48.20 Chronic atrial fibrillation, unspecified; I48.19 Other persistent atrial fibrillation; G89.29 Other chronic pain; E11.42 Type 2 diabetes mellitus with diabetic polyneuropathy; F17.210 Nicotine dependence, cigarettes, uncomplicated; F10.129 Alcohol abuse with intoxication, unspecified; M19.90 Unspecified osteoarthritis, unspecified site; I08.1 Rheumatic disorders of both mitral and tricuspid valves; E87.6 Hypokalemia; R74.01 Elevation of levels of liver transaminase levels; F41.9 Anxiety disorder, unspecified; E86.0 Dehydration; F32.A Depression, unspecified; Z79.01 Long term (current) use of anticoagulants; Z79.82 Long term (current) use of aspirin; Z98.51 Tubal ligation status; Z80.3 Family history of malignant neoplasm of breast; Z82.3 Family history of stroke; Z91.14 Patient's other noncompliance with medication regimen; Z87.01 Personal history of pneumonia (recurrent); Z71.6 Tobacco abuse counseling
CPT/HCPCS: 36415; 71045; 80048; 80053; 80202; 81001; 82550; 82553; 83605; 83735; 83874; 84100; 84484; 85025; 87040; 93005; 94640; 94664; 94760; 96374; 96375; 99285; G0480; J0692; J1160; J1650; J2060; J2405; J2920; J2930; J3370; J3411; J3475; J7030; J7070; U0002

== ENCOUNTER 2021-06-07 19:44 | Inpatient (IN) | payer OTHER ==
[~2021-06-07] VITALS: Ht 182.9 cm; Wt 60.4 kg
[~2021-06-07 19:44] MED LIST changes: +SPIRIVA RESPIMAT4 GM INH
[2021-06-07 20:32] LABS: HEMOGLOBIN 11.6 gm/dl (12.3-15.3); RED BLOOD COUNT 4.42 M/UL (4.00-5.10); WHITE BLOOD COUNT 9.4 K/UL (4.5-11.0)
[2021-06-07 20:51] LABS: BUN/CREATININE RATIO 8 (0-10)
[2021-06-09 09:05] LABS: HEMOGLOBIN 11.1 gm/dl (12.3-15.3); RED BLOOD COUNT 4.21 M/UL (4.00-5.10); WHITE BLOOD COUNT 10.7 K/UL (4.5-11.0)
[2021-06-09 09:30] LABS: BUN/CREATININE RATIO 12 (0-10)
[2021-06-10 04:27] LABS: HEMOGLOBIN 9.7 gm/dl (12.3-15.3); WHITE BLOOD COUNT 10.5 K/UL (4.5-11.0)
[2021-06-10 04:30] LABS: RED BLOOD COUNT 3.76 M/UL (4.00-5.10)
[2021-06-10 04:42] LABS: BUN/CREATININE RATIO 21 (0-10)
[2021-06-11 04:10] LABS: BUN/CREATININE RATIO 30 (0-10)
[2021-06-11] MEDS ORDERED: LOPRESSOR 50 MG50 MG PO (11:31)
[2021-06-11] MEDS ORDERED: MEDROL DOSEPAK 24 MG PO (11:53)
== END 2021-06-11 13:09 | disposition home or self-care (01) | DRG 897 ==
LOC: ER1 19:44 → PROG CARE 06-08 08:30 → CDU 06-08 08:30 → PROG CARE 06-08 22:15
PROVIDERS: Family Medicine; Internal Medicine; Physician Assistant; ADMIT Internal Medicine
DX: F10.229 Alcohol dependence with intoxication, unspecified (principal); J96.11 Chronic respiratory failure with hypoxia; E87.2 Acidosis; Z20.822 Contact with and (suspected) exposure to COVID-19; J44.1 Chronic obstructive pulmonary disease with (acute) exacerbation; E44.1 Mild protein-calorie malnutrition; Z68.1 Body mass index [BMI] 19.9 or less, adult; I48.20 Chronic atrial fibrillation, unspecified; I48.0 Paroxysmal atrial fibrillation; R29.6 Repeated falls; F41.9 Anxiety disorder, unspecified; F17.210 Nicotine dependence, cigarettes, uncomplicated; M19.90 Unspecified osteoarthritis, unspecified site; Z79.01 Long term (current) use of anticoagulants; Z79.82 Long term (current) use of aspirin; Z99.81 Dependence on supplemental oxygen; Z98.51 Tubal ligation status; Z82.3 Family history of stroke; Z82.49 Family history of ischemic heart disease and other diseases of the circulatory system; Z80.3 Family history of malignant neoplasm of breast
CPT/HCPCS: 36415; 36600; 71045; 80048; 80053; 80307; 81001; 82550; 82553; 82803; 83605; 83735; 83874; 83880; 84100; 84132; 84484; 85025; 85610; 87040; 93005; 94640; 94664; 94760; 96374; 96375; 99285; G0480; J2060; J2920; J2930; U0002

== ENCOUNTER 2021-07-19 01:35 | Inpatient (IN) | payer OTHER ==
[~2021-07-19] VITALS: Ht 182.9 cm; Wt 65.4 kg
[~2021-07-19 01:35] MED LIST changes: +LOPRESSOR 50 MG50 MG PO
[2021-07-19 02:06] LABS: HEMOGLOBIN 11.2 gm/dl (12.3-15.3); RED BLOOD COUNT 4.22 M/UL (4.00-5.10); WHITE BLOOD COUNT 5.6 K/UL (4.5-11.0)
[2021-07-19 02:40] LABS: BUN/CREATININE RATIO 9 (0-10)
[2021-07-19] MEDS ORDERED: GABAPENTIN300 MG PO (10:29)
[2021-07-20 02:18] LABS: HEMOGLOBIN 9.4 gm/dl (12.3-15.3)
[2021-07-20 02:20] LABS: RED BLOOD COUNT 3.55 M/UL (4.00-5.10); WHITE BLOOD COUNT 12.5 K/UL (4.5-11.0)
[2021-07-20 02:42] LABS: BUN/CREATININE RATIO 12 (0-10)
[2021-07-21 02:25] LABS: HEMOGLOBIN 9.5 gm/dl (12.3-15.3); RED BLOOD COUNT 3.55 M/UL (4.00-5.10); WHITE BLOOD COUNT 12.8 K/UL (4.5-11.0)
[2021-07-21 02:53] LABS: BUN/CREATININE RATIO 14 (0-10)
[2021-07-22 02:39] LABS: HEMOGLOBIN 9.8 gm/dl (12.3-15.3); RED BLOOD COUNT 3.74 M/UL (4.00-5.10)
[2021-07-22 03:01] LABS: BUN/CREATININE RATIO 20 (0-10)
[2021-07-23 02:35] LABS: HEMOGLOBIN 9.3 gm/dl (12.3-15.3); RED BLOOD COUNT 3.53 M/UL (4.00-5.10); WHITE BLOOD COUNT 16.7 K/UL (4.5-11.0)
[2021-07-23 03:13] LABS: BUN/CREATININE RATIO 22 (0-10)
[2021-07-23 11:23] LABS: BORDETELLA PARAPERTUSSIS Not Detected (Not Detectd); BORDETELLA PERTUSSIS Not Detected (Not Detectd); CHLAMYDIA PNEUMONIAE Not Detected (Not Detectd); CORONAVIRUS HKU1 Not Detected (Not Detectd); CORONAVIRUS NL63 Not Detected (Not Detectd); CORONAVIRUS OC43 Not Detected (Not Detectd); CORONOAVIRUS 229E Not Detected (Not Detectd); HUMAN METAPNEUMOVIRUS Not Detected (Not Detectd); HUMAN RHINOVIRUS/ENTEROVIRUS Not Detected (Not Detectd); INFLUENZA A Not Detected (Not Detectd); INFLUENZA B Not Detected (Not Detectd); MYCOPLASMA PNEUMONIAE Not Detected (Not Detectd); PARAINFLUENZA VIRUS 1 Not Detected (Not Detectd); PARAINFLUENZA VIRUS 2 Not Detected (Not Detectd); PARAINFLUENZA VIRUS 3 Not Detected (Not Detectd); PARAINFLUENZA VIRUS 4 Not Detected (Not Detectd); RESPIRATORY SYNCYTIAL VIRUS Not Detected (Not Detectd)
[2021-07-23 12:44] LABS: SARS-CoV-2 NOT DETECTED (Not Detectd)
[2021-07-24 02:52] LABS: HEMOGLOBIN 9.1 gm/dl (12.3-15.3); RED BLOOD COUNT 3.46 M/UL (4.00-5.10); WHITE BLOOD COUNT 16.5 K/UL (4.5-11.0)
[2021-07-24 03:26] LABS: BUN/CREATININE RATIO 17 (0-10)
[2021-07-25 03:00] LABS: HEMOGLOBIN 9.2 gm/dl (12.3-15.3); RED BLOOD COUNT 3.46 M/UL (4.00-5.10)
[2021-07-25 03:22] LABS: BUN/CREATININE RATIO 17 (0-10)
[2021-07-26 03:44] LABS: RED BLOOD COUNT 3.4 M/UL (4.00-5.10); WHITE BLOOD COUNT 13.5 K/UL (4.5-11.0)
[2021-07-26 04:06] LABS: BUN/CREATININE RATIO 23 (0-10)
[2021-07-27 04:31] LABS: HEMOGLOBIN 8.7 gm/dl (12.3-15.3); RED BLOOD COUNT 3.3 M/UL (4.00-5.10)
[2021-07-27 05:10] LABS: BUN/CREATININE RATIO 23 (0-10)
[2021-07-28 03:57] LABS: HEMOGLOBIN 8.8 gm/dl (12.3-15.3); RED BLOOD COUNT 3.38 M/UL (4.00-5.10); WHITE BLOOD COUNT 10.9 K/UL (4.5-11.0)
[2021-07-28 04:05] LABS: BUN/CREATININE RATIO 24 (0-10)
[2021-07-29 06:34] LABS: HEMOGLOBIN 10.1 gm/dl (12.3-15.3); WHITE BLOOD COUNT 11.7 K/UL (4.5-11.0)
[2021-07-29 06:58] LABS: RED BLOOD COUNT 3.89 M/UL (4.00-5.10)
[2021-07-29 07:05] LABS: BUN/CREATININE RATIO 25 (0-10)
[2021-07-30 06:04] LABS: HEMOGLOBIN 9.7 gm/dl (12.3-15.3); RED BLOOD COUNT 3.75 M/UL (4.00-5.10); WHITE BLOOD COUNT 11.4 K/UL (4.5-11.0)
[2021-07-30 06:27] LABS: BUN/CREATININE RATIO 23 (0-10)
[2021-07-31 07:26] LABS: HEMOGLOBIN 9.6 gm/dl (12.3-15.3); RED BLOOD COUNT 3.69 M/UL (4.00-5.10)
[2021-07-31 07:28] LABS: WHITE BLOOD COUNT 16.2 K/UL (4.5-11.0)
[2021-07-31 07:56] LABS: BUN/CREATININE RATIO 25 (0-10)
[2021-08-01 04:51] LABS: HEMOGLOBIN 9.1 gm/dl (12.3-15.3); RED BLOOD COUNT 3.41 M/UL (4.00-5.10); WHITE BLOOD COUNT 16.6 K/UL (4.5-11.0)
[2021-08-01 05:05] LABS: BUN/CREATININE RATIO 27 (0-10)
[2021-08-02 07:51] LABS: HEMOGLOBIN 9.8 gm/dl (12.3-15.3); WHITE BLOOD COUNT 15.5 K/UL (4.5-11.0)
[2021-08-02 07:52] LABS: RED BLOOD COUNT 3.86 M/UL (4.00-5.10)
[2021-08-02 08:25] LABS: BUN/CREATININE RATIO 24 (0-10)
[2021-08-03 07:29] LABS: HEMOGLOBIN 9.9 gm/dl (12.3-15.3); RED BLOOD COUNT 3.81 M/UL (4.00-5.10); WHITE BLOOD COUNT 16.3 K/UL (4.5-11.0)
[2021-08-03 07:45] LABS: BUN/CREATININE RATIO 26 (0-10)
[2021-08-04 04:24] LABS: HEMOGLOBIN 8.9 gm/dl (12.3-15.3); RED BLOOD COUNT 3.54 M/UL (4.00-5.10); WHITE BLOOD COUNT 14.1 K/UL (4.5-11.0)
[2021-08-04 04:51] LABS: BUN/CREATININE RATIO 28 (0-10)
[2021-08-04] MEDS ORDERED: LEVALBUTER1.25 MG/3 NEB (13:28)
[2021-08-04] MEDS ORDERED: NICOTINE PATCH1 EAC1 TOP (13:28)
[2021-08-04] MEDS ORDERED: LOPRESSOR 50 MG50 MG PO (13:28)
[2021-08-04] MEDS ORDERED: DILTIAZEM 24HR240 M1 PO (13:28)
[2021-08-04] MEDS ORDERED: DIGOXIN250 MCG PO (13:28)
[2021-08-04] MEDS ORDERED: FOLIC ACID 1 MG1 MG PO (13:28)
[2021-08-04] MEDS ORDERED: FUROSEMIDE20 MG PO (13:28)
[2021-08-04] MEDS ORDERED: GABAPENTIN600 MG PO (13:50)
[2021-08-04] MEDS ORDERED: PREDNISONE5 MG PO (14:00)
== END 2021-08-04 15:19 | disposition home or self-care (01) | DRG 189 ==
LOC: ER1 01:35 → CDU 03:52 → PROG CARE 03:52
PROVIDERS: Internal Medicine; Student in an Organized Health Care Education/Training Program; ADMIT Internal Medicine
PROC: HZ2ZZZZ Detoxification Services for Substance Abuse Treatment (ICD-10-PCS; principal; 2021-07-19)
PROC: 3E03329 Introduction of Other Anti-infective into Peripheral Vein, Percutaneous Approach (ICD-10-PCS; 2021-07-19)
PROC: B24BZZZ Ultrasonography of Heart with Aorta (ICD-10-PCS; 2021-07-26)
DX: J96.21 Acute and chronic respiratory failure with hypoxia (principal); I50.21 Acute systolic (congestive) heart failure; J44.1 Chronic obstructive pulmonary disease with (acute) exacerbation; F10.231 Alcohol dependence with withdrawal delirium; E87.2 Acidosis; J44.0 Chronic obstructive pulmonary disease with (acute) lower respiratory infection; E44.0 Moderate protein-calorie malnutrition; Z68.1 Body mass index [BMI] 19.9 or less, adult; I48.19 Other persistent atrial fibrillation; J96.22 Acute and chronic respiratory failure with hypercapnia; I11.0 Hypertensive heart disease with heart failure; F41.9 Anxiety disorder, unspecified; F17.200 Nicotine dependence, unspecified, uncomplicated; E87.6 Hypokalemia; E88.09 Other disorders of plasma-protein metabolism, not elsewhere classified; E83.39 Other disorders of phosphorus metabolism; R94.5 Abnormal results of liver function studies; R00.2 Palpitations; E83.42 Hypomagnesemia; D64.9 Anemia, unspecified; R74.01 Elevation of levels of liver transaminase levels; K57.90 Diverticulosis of intestine, part unspecified, without perforation or abscess without bleeding; M19.91 Primary osteoarthritis, unspecified site; M79.10 Myalgia, unspecified site; Z98.51 Tubal ligation status; Z80.3 Family history of malignant neoplasm of breast; Z79.899 Other long term (current) drug therapy; Z79.82 Long term (current) use of aspirin; Z82.3 Family history of stroke; Z99.81 Dependence on supplemental oxygen; Z91.81 History of falling
CPT/HCPCS: ECHO; 36415; 36600; 71045; 71046; 80048; 80053; 82550; 82553; 82803; 83605; 83735; 83880; 84100; 84132; 84439; 84443; 84484; 85025; 85027; 86140; 87040; 87633; 93005; 93306; 93970; 94640; 94664; 94760; 96374; 96375; 96376; 97110; 97161; 97165; 99285; G0480; J1100; J1160; J1335; J1650; J1940; J2060; J2405; J2920; J3411; J3475; J3480; J7030; J7050; P9047; U0002

== ENCOUNTER 2021-09-14 17:28 | Inpatient (IN) | payer OTHER ==
[~2021-09-14] VITALS: Ht 177.8 cm; Wt 61.9 kg
[~2021-09-14 17:28] MED LIST changes: +FUROSEMIDE20 MG PO; +GABAPENTIN600 MG PO; +NICOTINE PATCH1 EAC1 TOP; +PREDNISONE5 MG PO
[2021-09-14 19:57] LABS: RED BLOOD COUNT 4.6 M/UL (4.00-5.10); WHITE BLOOD COUNT 9.3 K/UL (4.5-11.0)
[2021-09-14 20:22] LABS: BUN/CREATININE RATIO 9 (0-10)
[2021-09-15 06:13] LABS: BUN/CREATININE RATIO 11 (0-10)
[2021-09-16 02:33] LABS: HEMOGLOBIN 10.3 gm/dl (12.3-15.3); RED BLOOD COUNT 4.36 M/UL (4.00-5.10)
[2021-09-16 02:38] LABS: BUN/CREATININE RATIO 13 (0-10)
[2021-09-17 02:33] LABS: HEMOGLOBIN 9.3 gm/dl (12.3-15.3)
[2021-09-17 02:38] LABS: RED BLOOD COUNT 3.9 M/UL (4.00-5.10); WHITE BLOOD COUNT 21.3 K/UL (4.5-11.0)
[2021-09-17 02:41] LABS: BUN/CREATININE RATIO 27 (0-10)
[2021-09-18 01:51] LABS: RED BLOOD COUNT 3.86 M/UL (4.00-5.10)
[2021-09-18 01:52] LABS: WHITE BLOOD COUNT 14.5 K/UL (4.5-11.0)
[2021-09-18 02:56] LABS: BUN/CREATININE RATIO 20 (0-10)
[2021-09-18] MEDS ORDERED: PERCOCET 5/325 T1 EA PO (14:30)
[2021-09-18] MEDS ORDERED: DOCUSATE SODIU100 MG PO (16:58)
[2021-09-18] MEDS ORDERED: PHOS-NAK PACKET1 EA PO (16:58)
[2021-09-18] MEDS ORDERED: METOPROLOL SUCC50 MG PO ×2 (16:58→17:19)
[2021-09-18] MEDS ORDERED: MAALOX PLUS 3030 ML PO (16:58)
[2021-09-18] MEDS ORDERED: DILTIAZEM 24HR300 M1 PO ×2 (16:58→17:19)
[2021-09-18] MEDS ORDERED: MEDROL DOSEPAK 24 MG PO (16:58)
[2021-09-18] MEDS ORDERED: ELIQUIS 2.5 MG2.5 MG PO (16:58)
[2021-09-18] MEDS ORDERED: SPIRIVA RESPIMAT4 GM INH (16:58)
[2021-09-18] MEDS ORDERED: OMNICEF 300 MG300 MG PO (17:14)
[2021-09-18] MEDS ORDERED: DOXYCYCLINE HY100 M2 PO (17:14)
[2021-09-18] MEDS ORDERED: LEVALBUTER1.25 MG/3 NEB (17:14)
== END 2021-09-18 19:35 | disposition home health service (06) | DRG 481 ==
LOC: ER1 17:28 → PROG CARE 21:39 → CDU 21:39 → PROG CARE 23:29
PROVIDERS: Family Medicine; Internal Medicine; Orthopaedic Surgery; Student in an Organized Health Care Education/Training Program; ADMIT Internal Medicine
PROC: 0QS606Z Reposition Right Upper Femur with Intramedullary Internal Fixation Device, Open Approach (ICD-10-PCS; principal; 2021-09-15 13:34)
DX: S72.141A Displaced intertrochanteric fracture of right femur, initial encounter for closed fracture (principal); J96.11 Chronic respiratory failure with hypoxia; E44.0 Moderate protein-calorie malnutrition; J44.1 Chronic obstructive pulmonary disease with (acute) exacerbation; I48.21 Permanent atrial fibrillation; Z99.81 Dependence on supplemental oxygen; Z20.822 Contact with and (suspected) exposure to COVID-19; F17.200 Nicotine dependence, unspecified, uncomplicated; F41.8 Other specified anxiety disorders; F10.20 Alcohol dependence, uncomplicated; G62.9 Polyneuropathy, unspecified; D72.829 Elevated white blood cell count, unspecified; J40 Bronchitis, not specified as acute or chronic; E83.39 Other disorders of phosphorus metabolism; W01.0XXA Fall on same level from slipping, tripping and stumbling without subsequent striking against object, initial encounter; I27.20 Pulmonary hypertension, unspecified; Z79.01 Long term (current) use of anticoagulants; Z91.14 Patient's other noncompliance with medication regimen; Z79.899 Other long term (current) drug therapy; Z98.51 Tubal ligation status; Z83.3 Family history of diabetes mellitus; Z79.82 Long term (current) use of aspirin
CPT/HCPCS: 36415; 36600; 51702; 71045; 73502; 73552; 73590; 73700; 76000; 80048; 80053; 80162; 80307; 81001; 82550; 82553; 82803; 83735; 84100; 84439; 84443; 84484; 85025; 85610; 93005; 94640; 94664; 94760; 96374; 96375; 97116-GP-CQ; 97162; 97165; 97530; 97535; 99284; C1713; C9113; G0480; J0690; J0696; J1100; J1160; J1170; J1650; J1885; J2001; J2270; J2405; J2704; J2710; J2920; J3010; J3370; J3411; J3475; J7030; J7120; U0002

== ENCOUNTER 2021-11-05 19:42 | Inpatient (IN) | payer OTHER ==
[~2021-11-05] VITALS: Ht 175.3 cm; Wt 57.2 kg
[~2021-11-05 19:42] MED LIST changes: +ELIQUIS 2.5 MG2.5 MG PO; +MAALOX PLUS 3030 ML PO; +METOPROLOL SUCC50 MG PO; +PHOS-NAK PACKET1 EA PO
[2021-11-05 21:02] LABS: RED BLOOD COUNT 5.24 M/UL (4.00-5.10); WHITE BLOOD COUNT 8.3 K/UL (4.5-11.0)
[2021-11-05 21:20] LABS: BUN/CREATININE RATIO 10 (0-10)
[2021-11-06 05:41] LABS: BUN/CREATININE RATIO 8 (0-10)
[2021-11-06] MEDS ORDERED: FUROSEMIDE20 MG PO (14:14)
[2021-11-06] MEDS ORDERED: PROAIR HFA8.5 GM INH (14:14)
[2021-11-07 06:32] LABS: BUN/CREATININE RATIO 11 (0-10)
[2021-11-07 08:24] LABS: RED BLOOD COUNT 4.24 M/UL (4.00-5.10)
[2021-11-07 08:25] LABS: HEMOGLOBIN 9.9 gm/dl (12.3-15.3)
[2021-11-08 05:02] LABS: HEMOGLOBIN 9.8 gm/dl (12.3-15.3); RED BLOOD COUNT 4.24 M/UL (4.00-5.10)
[2021-11-08 05:52] LABS: BUN/CREATININE RATIO 16 (0-10)
[2021-11-08] MEDS ORDERED: LEVALBUTER1.25 MG/3 NEB (13:26)
== END 2021-11-08 14:32 | disposition home or self-care (01) | DRG 309 ==
LOC: ER1 19:42 → CDU 11-06 00:42 → CCU 11-06 10:35
PROVIDERS: Family Medicine; Internal Medicine; ADMIT Internal Medicine
DX: I48.21 Permanent atrial fibrillation (principal); J96.11 Chronic respiratory failure with hypoxia; I48.20 Chronic atrial fibrillation, unspecified; F10.129 Alcohol abuse with intoxication, unspecified; Z20.822 Contact with and (suspected) exposure to COVID-19; G40.909 Epilepsy, unspecified, not intractable, without status epilepticus; J44.9 Chronic obstructive pulmonary disease, unspecified; Z96.698 Presence of other orthopedic joint implants; R29.6 Repeated falls; M19.90 Unspecified osteoarthritis, unspecified site; F17.210 Nicotine dependence, cigarettes, uncomplicated; F41.9 Anxiety disorder, unspecified; I27.20 Pulmonary hypertension, unspecified; E87.6 Hypokalemia; G89.29 Other chronic pain; M54.50 Low back pain, unspecified; Z79.01 Long term (current) use of anticoagulants; Z79.82 Long term (current) use of aspirin; Z87.19 Personal history of other diseases of the digestive system; Z98.51 Tubal ligation status; Z82.3 Family history of stroke; Z80.3 Family history of malignant neoplasm of breast; Z91.14 Patient's other noncompliance with medication regimen; Z87.01 Personal history of pneumonia (recurrent)
CPT/HCPCS: 36415; 71045; 80048; 80053; 80162; 82550; 82553; 82728; 83540; 83550; 83735; 84100; 84439; 84443; 84484; 85025; 94640; 94664; 94760; 96374; 96375; 99285; G0480; J1160; J2060; J2930; J3411; J3475; J3480; J7030

== ENCOUNTER 2021-11-25 22:18 | Emergency (ER) | payer OTHER ==
[2021-11-25 23:08] LABS: HEMOGLOBIN 11.3 gm/dl (12.3-15.3); RED BLOOD COUNT 4.84 M/UL (4.00-5.10); WHITE BLOOD COUNT 11.2 K/UL (4.5-11.0)
[2021-11-25 23:19] LABS: BUN/CREATININE RATIO 12 (0-10)
[2021-11-26] MEDS ORDERED: SILVADENE CREAM20 GM TOP (02:00)
== END 2021-11-26 02:22 | disposition home or self-care (01) ==
LOC: ER1 22:18
PROVIDERS: Nurse Practitioner
DX: I96 Gangrene, not elsewhere classified (principal); J44.9 Chronic obstructive pulmonary disease, unspecified; I11.9 Hypertensive heart disease without heart failure; I48.91 Unspecified atrial fibrillation
CPT/HCPCS: 73630; 80053; 85025; 85652; 86140; 99284; G0480

== ENCOUNTER 2021-12-05 17:59 | Inpatient (IN) | payer OTHER ==
[~2021-12-05] VITALS: Ht 175.3 cm; Wt 61.8 kg
[~2021-12-05 17:59] MED LIST changes: +SILVADENE CREAM20 GM TOP
[2021-12-05 19:36] LABS: BUN/CREATININE RATIO 20 (0-10)
[2021-12-05 19:59] LABS: HEMOGLOBIN 9.9 gm/dl (12.3-15.3); RED BLOOD COUNT 4.08 M/UL (4.00-5.10); WHITE BLOOD COUNT 10.5 K/UL (4.5-11.0)
[2021-12-06 06:31] LABS: HEMOGLOBIN 8.4 gm/dl (12.3-15.3); RED BLOOD COUNT 3.51 M/UL (4.00-5.10); WHITE BLOOD COUNT 8.6 K/UL (4.5-11.0)
[2021-12-06 07:00] LABS: BUN/CREATININE RATIO 11 (0-10)
[2021-12-07 04:48] LABS: HEMOGLOBIN 9.4 gm/dl (12.3-15.3); WHITE BLOOD COUNT 7.9 K/UL (4.5-11.0)
[2021-12-07 04:54] LABS: RED BLOOD COUNT 3.91 M/UL (4.00-5.10)
[2021-12-07 05:15] LABS: BUN/CREATININE RATIO 9 (0-10)
[2021-12-08 01:51] LABS: HEMOGLOBIN 8.8 gm/dl (12.3-15.3); RED BLOOD COUNT 3.69 M/UL (4.00-5.10)
[2021-12-08 01:53] LABS: WHITE BLOOD COUNT 13.5 K/UL (4.5-11.0)
[2021-12-08 02:21] LABS: BUN/CREATININE RATIO 13 (0-10)
--- NOTE | 2021-12-08 02:56 | NUR ---
PATIENT'S HEARTRATE HAS CLIMBED BACK INTO THE 150'S AT TIMES. CARDIZEM WAS RESTARTED BUT BLOOD PRESSURE HAS FALLEN SBP 90'S. DR ROACH ON PCU AT THE TIME, NOTIFIED HIM ABOUT HEARTRATE AND BLOOD PRESSURE. VERBALLY ORDERED TO STOP CARDIZEM AT THIS TIME DUE TO LOW BP AND DR ROACH SAID PATIENT'S "HEARTRATE IS FINE, SHE LIVES THERE".
--- NOTE | 2021-12-08 04:45 | NUR ---
PATIENT'S HEARTRATE HAS CLIMBED TO 140'S-150'S, ASKED PHYSICIAN IF WE COULD GIVE ANYTHING FOR HER HEARTRATE SINCE CARDIZEM LOWERS BP AND WAS TOLD 'NO, LEAVE HER ALONE'. PATIENT IS RESTING IN BED AND IS IN NO OBVIOUS DISTRESS.
[2021-12-09 05:28] LABS: BUN/CREATININE RATIO 23 (0-10)
[2021-12-09 08:16] LABS: RED BLOOD COUNT 3.7 M/UL (4.00-5.10)
[2021-12-09 08:20] LABS: WHITE BLOOD COUNT 17.1 K/UL (4.5-11.0)
[2021-12-10 02:11] LABS: HEMOGLOBIN 8.7 gm/dl (12.3-15.3); RED BLOOD COUNT 3.57 M/UL (4.00-5.10); WHITE BLOOD COUNT 15.1 K/UL (4.5-11.0)
[2021-12-10 02:34] LABS: BUN/CREATININE RATIO 22 (0-10)
[2021-12-11 04:32] LABS: HEMOGLOBIN 9.1 gm/dl (12.3-15.3); RED BLOOD COUNT 3.76 M/UL (4.00-5.10)
[2021-12-11 04:34] LABS: WHITE BLOOD COUNT 19.6 K/UL (4.5-11.0)
[2021-12-11 05:00] LABS: BUN/CREATININE RATIO 21 (0-10)
[2021-12-12 02:25] LABS: HEMOGLOBIN 9.2 gm/dl (12.3-15.3); RED BLOOD COUNT 3.81 M/UL (4.00-5.10); WHITE BLOOD COUNT 18.6 K/UL (4.5-11.0)
[2021-12-12 03:10] LABS: BUN/CREATININE RATIO 17 (0-10)
[2021-12-13 04:34] LABS: RED BLOOD COUNT 3.76 M/UL (4.00-5.10); WHITE BLOOD COUNT 19.9 K/UL (4.5-11.0)
[2021-12-13 04:43] LABS: BUN/CREATININE RATIO 21 (0-10)
[2021-12-14 04:03] LABS: HEMOGLOBIN 8.8 gm/dl (12.3-15.3); RED BLOOD COUNT 3.66 M/UL (4.00-5.10); WHITE BLOOD COUNT 20.3 K/UL (4.5-11.0)
[2021-12-14 04:25] LABS: BUN/CREATININE RATIO 15 (0-10)
[2021-12-15 04:40] LABS: HEMOGLOBIN 8.4 gm/dl (12.3-15.3); RED BLOOD COUNT 3.49 M/UL (4.00-5.10)
[2021-12-15 04:59] LABS: BUN/CREATININE RATIO 14 (0-10)
[2021-12-16 03:26] LABS: HEMOGLOBIN 8.8 gm/dl (12.3-15.3); RED BLOOD COUNT 3.7 M/UL (4.00-5.10)
[2021-12-16 03:32] LABS: WHITE BLOOD COUNT 19.3 K/UL (4.5-11.0)
[2021-12-16 03:38] LABS: BUN/CREATININE RATIO 17 (0-10)
[2021-12-17 02:06] LABS: HEMOGLOBIN 9.5 gm/dl (12.3-15.3); RED BLOOD COUNT 3.97 M/UL (4.00-5.10); WHITE BLOOD COUNT 22.7 K/UL (4.5-11.0)
[2021-12-17 02:39] LABS: BUN/CREATININE RATIO 10 (0-10)
--- NOTE | 2021-12-17 17:30 | NUR ---
NOTIFIED DR MOSQUEDA OF PTS ABDOMEN GETTING MORE DISTENDED AND FIRM. PT COMPLAINING OF TENDERNESS ALL OVER. ALSO NOTIFIED HER OF PTS URINE OUTPUT COMPARED TO INTAKE. PT HAVING 4000ML OF URINE OUT IN 12 HOURS, AND ERICA DRAINAGE IS PURULENT LOOKING WITH ONLY 10ML OUT IN 12 HOURS. BOWEL SOUNDS ARE PRESENT AND HYPERACTIVE. PT IS HAVING BOWEL MOVEMENTS. PANDA STATES SHE WILL SEE PT SOON AND ASSESS THE SITUATION.
[2021-12-18 01:26] LABS: HEMOGLOBIN 8.8 gm/dl (12.3-15.3); RED BLOOD COUNT 3.67 M/UL (4.00-5.10)
[2021-12-18 01:50] LABS: BUN/CREATININE RATIO 11 (0-10)
[2021-12-19 02:26] LABS: HEMOGLOBIN 9.1 gm/dl (12.3-15.3); RED BLOOD COUNT 3.9 M/UL (4.00-5.10)
[2021-12-19 02:34] LABS: WHITE BLOOD COUNT 16.2 K/UL (4.5-11.0)
[2021-12-19 02:45] LABS: BUN/CREATININE RATIO 14 (0-10)
[2021-12-20 01:55] LABS: RED BLOOD COUNT 4.29 M/UL (4.00-5.10)
[2021-12-20 01:56] LABS: WHITE BLOOD COUNT 11.2 K/UL (4.5-11.0)
[2021-12-20 02:18] LABS: BUN/CREATININE RATIO 15 (0-10)
[2021-12-21 01:23] LABS: HEMOGLOBIN 8.8 gm/dl (12.3-15.3)
[2021-12-21 01:25] LABS: RED BLOOD COUNT 3.75 M/UL (4.00-5.10); WHITE BLOOD COUNT 14.9 K/UL (4.5-11.0)
[2021-12-21 01:42] LABS: BUN/CREATININE RATIO 16 (0-10)
[2021-12-22 10:35] LABS: HEMOGLOBIN 9.6 gm/dl (12.3-15.3); RED BLOOD COUNT 4.01 M/UL (4.00-5.10); WHITE BLOOD COUNT 12.5 K/UL (4.5-11.0)
[2021-12-23 02:27] LABS: HEMOGLOBIN 9.6 gm/dl (12.3-15.3); RED BLOOD COUNT 3.92 M/UL (4.00-5.10)
[2021-12-23 02:31] LABS: WHITE BLOOD COUNT 17.6 K/UL (4.5-11.0)
[2021-12-23 02:46] LABS: BUN/CREATININE RATIO 16 (0-10)
--- NOTE | 2021-12-23 16:58 | NUR ---
12/23/[address] MURCIA NOTIFIED OF PATIENT CONDITION AFTER 10 ML SALINE FLUSH OF ERICA DRAIN. PATIENT IS ON HER LEFT SIDE, CRYING AND GUARDING ABDOMEN. PATIENT RATES PAIN A 10/10. 5 ML OF OUTPUT NOTED IN DRAIN AT THIS TIME. STATED HE WILL COME TO BEDSIDE AND SEE THE PATIENT.
[2021-12-24 02:36] LABS: HEMOGLOBIN 8.6 gm/dl (12.3-15.3); RED BLOOD COUNT 3.6 M/UL (4.00-5.10); WHITE BLOOD COUNT 17.8 K/UL (4.5-11.0)
[2021-12-24 03:18] LABS: BUN/CREATININE RATIO 16 (0-10)
[2021-12-25 05:15] LABS: BUN/CREATININE RATIO 22 (0-10)
[2021-12-25 06:19] LABS: RED BLOOD COUNT 2.78 M/UL (4.00-5.10); WHITE BLOOD COUNT 24.4 K/UL (4.5-11.0)
[2021-12-25 06:20] LABS: HEMOGLOBIN 6.6 gm/dl (12.3-15.3)
[2021-12-26 04:50] LABS: HEMOGLOBIN 7.5 gm/dl (12.3-15.3); RED BLOOD COUNT 2.93 M/UL (4.00-5.10); WHITE BLOOD COUNT 23.7 K/UL (4.5-11.0)
[2021-12-26 06:10] LABS: BUN/CREATININE RATIO 21 (0-10)
[2021-12-27 02:20] LABS: WHITE BLOOD COUNT 19.9 K/UL (4.5-11.0)
[2021-12-27 02:22] LABS: RED BLOOD COUNT 3.67 M/UL (4.00-5.10)
[2021-12-27 02:36] LABS: BUN/CREATININE RATIO 16 (0-10)
[2021-12-28 05:31] LABS: HEMOGLOBIN 7.4 gm/dl (12.3-15.3); WHITE BLOOD COUNT 18.6 K/UL (4.5-11.0)
[2021-12-28 05:32] LABS: RED BLOOD COUNT 2.98 M/UL (4.00-5.10)
[2021-12-28 05:55] LABS: BUN/CREATININE RATIO 22 (0-10)
[2021-12-29 04:12] LABS: HEMOGLOBIN 8.1 gm/dl (12.3-15.3); RED BLOOD COUNT 3.22 M/UL (4.00-5.10)
[2021-12-29 04:28] LABS: BUN/CREATININE RATIO 26 (0-10)
[2021-12-30 03:00] LABS: HEMOGLOBIN 7.2 gm/dl (12.3-15.3); WHITE BLOOD COUNT 15.2 K/UL (4.5-11.0)
[2021-12-30 03:04] LABS: RED BLOOD COUNT 2.81 M/UL (4.00-5.10)
[2021-12-30 03:30] LABS: BUN/CREATININE RATIO 13 (0-10)
[2021-12-31 04:55] LABS: HEMOGLOBIN 7.7 gm/dl (12.3-15.3); WHITE BLOOD COUNT 14.1 K/UL (4.5-11.0)
[2021-12-31 05:14] LABS: RED BLOOD COUNT 3.1 M/UL (4.00-5.10)
[2021-12-31 05:34] LABS: BUN/CREATININE RATIO 18 (0-10)
[2021-12-31 12:11] LABS: LYME TOTAL ANTIBODY CIA Negative (Negative)
[2022-01-01 03:18] LABS: HEMOGLOBIN 7.6 gm/dl (12.3-15.3); RED BLOOD COUNT 3.13 M/UL (4.00-5.10); WHITE BLOOD COUNT 12.9 K/UL (4.5-11.0)
[2022-01-01 03:45] LABS: BUN/CREATININE RATIO 17 (0-10)
[2022-01-02 04:06] LABS: HEMOGLOBIN 7.7 gm/dl (12.3-15.3); RED BLOOD COUNT 3.12 M/UL (4.00-5.10); WHITE BLOOD COUNT 13.4 K/UL (4.5-11.0)
[2022-01-02 04:29] LABS: BUN/CREATININE RATIO 16 (0-10)
[2022-01-02] MEDS ORDERED: CEPHALEXIN500 MG PO (11:21)
[2022-01-02] MEDS ORDERED: CARDIZEM 60MG T60 MG PO (11:21)
[2022-01-02] MEDS ORDERED: LOPRESSOR 25 MG25 MG PO (11:21)
[2022-01-02 14:14] LABS: BABESIA MICROTI IGG <1:10 (Neg:<1:10); BABESIA MICROTI IGM <1:10 (Neg:<1:10)
[2022-01-03 01:42] LABS: HEMOGLOBIN 8.1 gm/dl (12.3-15.3); RED BLOOD COUNT 3.17 M/UL (4.00-5.10); WHITE BLOOD COUNT 13.8 K/UL (4.5-11.0)
[2022-01-03 01:54] LABS: BUN/CREATININE RATIO 15 (0-10)
[2022-01-04 06:07] LABS: RED BLOOD COUNT 3.2 M/UL (4.00-5.10); WHITE BLOOD COUNT 13.2 K/UL (4.5-11.0)
[2022-01-04 07:25] LABS: BUN/CREATININE RATIO 16 (0-10)
[2022-01-05 02:05] LABS: HEMOGLOBIN 8.2 gm/dl (12.3-15.3); RED BLOOD COUNT 3.28 M/UL (4.00-5.10); WHITE BLOOD COUNT 12.4 K/UL (4.5-11.0)
[2022-01-05 02:21] LABS: BUN/CREATININE RATIO 10 (0-10)
--- NOTE | 2022-01-05 21:53 | NUR ---
PATIENT DISCHARGED WITH EMS, PATIENT STABLE UPON DEPARTURE. PATIENT TRANSFERED WELL.
== END 2022-01-05 21:50 | disposition short-term general hospital (02) | DRG 853 ==
LOC: ER1 17:59 → PROG CARE 12-06 01:08 → CDU 12-06 01:08 → PROG CARE 12-06 04:38 → CCU 12-24 14:29 → PROG CARE 12-29 12:21
PROVIDERS: Internal Medicine; Internal Medicine Critical Care Medicine; Physician Assistant; Preventive Medicine Occupational Medicine; Surgery; ADMIT Internal Medicine
PROC: 3E03329 Introduction of Other Anti-infective into Peripheral Vein, Percutaneous Approach (ICD-10-PCS; 2021-12-06)
PROC: 3E043XZ Introduction of Vasopressor into Central Vein, Percutaneous Approach (ICD-10-PCS; 2021-12-06)
PROC: 0JBQ0ZZ Excision of Right Foot Subcutaneous Tissue and Fascia, Open Approach (ICD-10-PCS; principal; 2021-12-07 09:35)
PROC: 0W9H4ZZ Drainage of Retroperitoneum, Percutaneous Endoscopic Approach (ICD-10-PCS; 2021-12-14)
PROC: 0D1M0Z4 Bypass Descending Colon to Cutaneous, Open Approach (ICD-10-PCS; 2021-12-24)
PROC: 0DTN0ZZ Resection of Sigmoid Colon, Open Approach (ICD-10-PCS; 2021-12-24)
PROC: 0DB80ZZ Excision of Small Intestine, Open Approach (ICD-10-PCS; 2021-12-24)
PROC: 30233N1 Transfusion of Nonautologous Red Blood Cells into Peripheral Vein, Percutaneous Approach (ICD-10-PCS; 2021-12-25)
DX: A41.51 Sepsis due to Escherichia coli [E. coli] (principal); I50.23 Acute on chronic systolic (congestive) heart failure; J15.9 Unspecified bacterial pneumonia; Z20.822 Contact with and (suspected) exposure to COVID-19; J96.21 Acute and chronic respiratory failure with hypoxia; K65.1 Peritoneal abscess; J96.22 Acute and chronic respiratory failure with hypercapnia; I96 Gangrene, not elsewhere classified; L03.115 Cellulitis of right lower limb; J44.1 Chronic obstructive pulmonary disease with (acute) exacerbation; D62 Acute posthemorrhagic anemia; K57.20 Diverticulitis of large intestine with perforation and abscess without bleeding; I48.21 Permanent atrial fibrillation; E87.2 Acidosis; F11.20 Opioid dependence, uncomplicated; J98.11 Atelectasis; J44.0 Chronic obstructive pulmonary disease with (acute) lower respiratory infection; R65.20 Severe sepsis without septic shock; G89.29 Other chronic pain; M54.9 Dorsalgia, unspecified; Z96.698 Presence of other orthopedic joint implants; Z80.3 Family history of malignant neoplasm of breast; E83.39 Other disorders of phosphorus metabolism; E87.6 Hypokalemia; I11.0 Hypertensive heart disease with heart failure; R29.6 Repeated falls; M19.90 Unspecified osteoarthritis, unspecified site; F41.9 Anxiety disorder, unspecified; K21.9 Gastro-esophageal reflux disease without esophagitis; F10.129 Alcohol abuse with intoxication, unspecified; I08.1 Rheumatic disorders of both mitral and tricuspid valves; K56.41 Fecal impaction; D64.9 Anemia, unspecified; D75.839 Thrombocytosis, unspecified; F17.210 Nicotine dependence, cigarettes, uncomplicated; Z79.01 Long term (current) use of anticoagulants; Z91.81 History of falling; Z98.51 Tubal ligation status; Z82.3 Family history of stroke; Z90.49 Acquired absence of other specified parts of digestive tract; Z79.82 Long term (current) use of aspirin; Z91.14 Patient's other noncompliance with medication regimen; Z93.50 Unspecified cystostomy status; R53.81 Other malaise; Z87.01 Personal history of pneumonia (recurrent); Z95.810 Presence of automatic (implantable) cardiac defibrillator; Z99.81 Dependence on supplemental oxygen
CPT/HCPCS: 36415; 36600; 71045; 71046; 73600; 73620; 74018; 80048; 80053; 80162; 80202; 81001; 82140; 82550; 82553; 82607; 82728; 82746; 82803; 83540; 83550; 83605; 83690; 83735; 83880; 84100; 84484; 85014; 85018; 85025; 85027; 85652; 86140; 86618; 86753; 86850; 86900; 86901; 86920; 87040; 87070; 87077; 87081; 87086; 87186; 87205; 92526; 92610; 93005; 93970; 94640; 94660; 94664; 94668; 94760; 96374; 96375; 97116; 97116-GP-CQ; 97162; 97165; 97530; 99285; A6212; C1751; C9113; G0480; J0690; J0696; J1100; J1160; J1170; J1450; J1650; J1756; J1940; J2001; J2185; J2250; J2270; J2370; J2405; J2543; J2550; J2704; J2920; J3010; J3370; J3411; J3475; J7030; J7040; J7070; P9016; P9045; Q9967; U0002